=== PATIENT | female | born 1995 | race Caucasian/White ===

== ENCOUNTER 2024-06-18 13:36 | Outpatient (AMB) | payer OTHER, SELFPAY ==
--- NOTE | 2024-06-18 13:38 | MHC.OFFVIS ---
Vital Signs 06/18/24 13:41 Height 5 ft 1 in Weight 256 lb 6.362 oz BMI 48.4 BP 114/72 Blood Pressure Location Lt brachial Position Sitting Pulse 90 Pulse Source Pulse Oximeter Intake Visit Reasons: Obesity Intake Note: Patient present today for Obesity. Coffee Break Attendant Required: No Accompanied by: Self / Same As Patient Allergies No Known Allergies Allergy (Verified 06/18/24 13:43) Medication List - Last Reconciled 06/18/24 by Seth Herring MD sertraline 50 mg PO DAILY sertraline 25 mg PO DAILY HPI Comments Details: This is a 29-year-old female referred to endocrinology for management of obesity. Weight gain started at chronically Recent weight has been gained 50 lb since 08/2023 . Patient has tried diets of protein shake each morning . Had done weight watchers and [employer] . Patient has seen a lobster catcher . Patient has not tried weight loss medications . Was prescribed Wegovy by PCP but not approved There is no history or symptoms of hypothyroidism . . There are no symptoms of Nathan syndrome. Patient is not attempting . There is a family history of obesity and diabetes in grandmother . No sleep apnea sx. Exercises with treadmill and weights [facility] Medical History (Updated 06/18/24 @ 13:48 by Seth Herring MD) Obesity Family History (Updated 06/18/24 @ 13:46 by CHAVEZ Kwan) Mother Atrophic emphysema Father Hypertension Heart disease Asthma Social History Alcohol intake: current Alcohol intake frequency: holidays/special occasions only Patient Tobacco Use Status: Tobacco use Unknown Physical Exam Vital Signs: Last Vital Signs Pulse 90 06/18/24 13:41 BP 114/72 06/18/24 13:41 BMI result Body Mass Index 48.4 Const Other: No cushingoid features. Thyroid gland is normal size weighs by 15 g. There are no thyroid nodules palpated. Assessment & Plan Assessment & Plan (1) Obesity: Code(s): E66.9 - Obesity, unspecified Category: Medical Plan: This 29-year-old white female with a history of morbid obesity. No clear underlying secondary cause. Appears to be clinically and biochemically euthyroid. Plan is to send the patient to lobster catcher. Will discuss use of G LP 1/G IP medication including use of either Zepbound or Wegovy if insurance will allow. After long discussion, we decided to start Zepbound 2.5 mg Qwkly. I went over the side effects of G LP 1 agonist including but not limited to nausea, vomiting and rare risk of pancreatitis Orders: Referrals Nutrition/Dietitian Referral E66.9 - Obesity, unspecified Medications: New tirzepatide (weight loss) (Zepbound) for 4 weeks 2.5 mg (0.5 mL) subcut QWEEK 2 mL 5RF Coding Level of Care Code New Pt Level 4 (23803) Diagnoses Obesity E66.9
[2024-06-18 13:41] VITALS: BP 114/72; PULSE 90; BMI 48.4
== END 2024-06-18 14:31 | disposition home or self-care (01) ==
PROVIDERS: Visit Provider Internal Medicine Endocrinology, Diabetes & Metabolism
DX: E66.9 Obesity, unspecified (principal)
CPT/HCPCS: 99204

== ENCOUNTER → 2024-06-18 13:36 | Outpatient (BNVA) | payer OTHER, SELFPAY | PROVIDERS: Visit Provider Internal Medicine Endocrinology, Diabetes & Metabolism ==

== ENCOUNTER 2024-10-24 15:35 | Outpatient (AMB) | payer OTHER, SELFPAY ==
--- NOTE | 2024-10-24 15:38 | A.OFFVIS_ITS ---
Vital Signs 10/24/24 15:39 Height 5 ft 1 in Weight 248 lb 3.848 oz BMI 46.9 BP 110/70 Blood Pressure Location Lt brachial Position Sitting Pulse 78 Pulse Source Pulse Oximeter Pulse Oximetry (%) 97 Oxygen Delivery Method Room Air Intake Visit Reasons: Obesity Intake Note: Patient present today for Obesity office visit. Hub Inventory Specialist Required: No Accompanied by: Self / Same As Patient Allergies No Known Allergies Allergy (Verified 10/24/24 15:42) Medication List - Last Reconciled 10/24/24 by Seth Herring MD sertraline 50 mg PO DAILY sertraline 25 mg PO DAILY tirzepatide (weight loss) (Zepbound) 2.5 mg (0.5 mL) subcut QWEEK HPI Comments Details: The patient is a 29-year-old female presenting for a follow-up of obesity management. Following a previous trial on semaglutide, which was discontinued due to cost and adverse effects, she initiated Zepound at 2.5 mg. Under this regimen, she reports successful weight reduction and manageable side effects. The patient notes significant lifestyle adjustments, including consistent exercise and dietary monitoring. Her back pain has resolved, and diabetes markers have improved to normal levels. The plan includes monitoring her response to treatment and adjusting the Zepound dose as needed, keeping potential insurance challenges in mind. [facility] Medical History (Updated 06/18/24 @ 13:48 by Seth Herring MD) Obesity Family History Mother Atrophic emphysema Father Hypertension Heart disease Asthma Social History Alcohol intake: current Alcohol intake frequency: holidays/special occasions only Patient Tobacco Use Status: Tobacco use Unknown Review of Systems Const Details: - Gastrointestinal: Reports occasional nausea and vomiting (previously more frequent on semaglutide), occasional acid reflux. Physical Exam Vital Signs: Last Vital Signs Pulse 78 10/24/24 15:39 BP 110/70 10/24/24 15:39 Pulse Ox 97 10/24/24 15:39 Oxygen Delivery Method Room Air 10/24/24 15:39 BMI result Body Mass Index 46.9 Assessment & Plan Assessment & Plan (1) Obesity: Code(s): E66.9 - Obesity, unspecified Category: Medical Plan The patient should continue Zepound 2.5 mg, paired with her current exercise and dietary regimen. A follow-up appointment in six weeks will assess weight loss progress and consider medication dose adjustments, subject to insurance coverage conditions.She will f/u with Carmela Riddle NP in 8 wks . During the visit, we discussed her significant weight loss and overall improvement in managing obesity. Options to adjust her Zepound dose were considered based on her progress and potential insurance issues. I highlighted the importance of her exercise routine and dietary monitoring for sustained weight management and glycemic control. We reviewed her occasional acid reflux, discussing symptomatic treatment options with [id number]-[id number] medications and dietary strategies. The patient is aware of the need for follow-up in six weeks to re-evaluate her weight management plan and any necessary adjustments, emphasizing insurance considerations for ongoing prescriptions. - Continue taking Zepound 2.5 mg as prescribed. Her Zepbound dose will be increased to 5 mg in 2 weeks for maintenance - Maintain calorie counting and regular physical exercise, particularly spin classes. - Monitor weight and glucose levels. - Use rxxw-[id number] antacids as needed for occasional reflux symptoms. - Return for follow-up in six weeks to reassess obesity management plan. - Contact us if experiencing increased or persistent side effects, such as severe nausea or vomiting. - Keep track of any insurance or prescription coverage challenges and report them during the next visit. Medications: New tirzepatide (weight loss) (Zepbound) 5 mg (0.5 mL) subcut QWEEK 2 mL 4RF Discontinued tirzepatide (weight loss) (Zepbound) for 4 weeks Discontinued Reason: Doctor's Order 2.5 mg (0.5 mL) subcut QWEEK 2 mL 5RF Coding Level of Care Code Est Pt Level 3 (57147) Diagnoses Obesity E66.9
[2024-10-24 15:39] VITALS: BP 110/70; PULSE 78; O2SAT 97; BMI 46.9
--- OUTSIDE RECORDS SUMMARY | 2024-10-24 19:09 | XMS_ITS | Clinical Summary ---
Author Organization [facility] Address [address] [place] [address] Phone Care Team Providers Care Special Education Itinerant Teacher Name Role Phone Kathy Rowley CHARLEEN Primary Care Provider [phone] Immunizations Immunization Administration Dates Next Due DTaP 5 07/04/2001, 9,1997, 998,1997 Hep B, ped/adol 02/20/1998,1997,1997 Hib (PRP-T) 07/17/1998, 8,1997, 997 IPV 07/04/2001 MMR 07/04/2001,05/13/1998 Meningococcal Conj (Menactra) MCV4P 07/09/2009 OPV 1997,1997,1997 Tdap 07/09/2009 Varicella 12/19/2007,05/13/1998 Family History Relation Name Status Comments Father Father: Heart d isease Half-Brother Alive Half brother (M ): Alive and well, Alive and well Mother Alive Mother: Alive a nd well Other Family history of Diabetes mellitus Social History Tobacco Use Types Packs/Day Years Used Date Smoking Tobacco: Never Assessed Comments Unknown Sex and Gender Information Value Date Recorded Sex Assigned at Not on file Legal Sex Female 4:33 PM EDT Gender Identity Not on file Sexual Orientation Not on file Last Filed Vital Signs Vital Sign Reading Time Taken Comments Blood Pressure - - Pulse - - Temperature 38.2 ??C (100.7 ??F) 04/07/2010 12:00 AM EDT Respiratory Rate - - Oxygen Saturation - - Inhaled Oxygen Concentration - - Weight 68.3 kg (150 lb 8 oz) 04/07/2010 12:00 AM EDT Height - - Body Mass Index - - Plan of Treatment Health Maintenance Due Date Last Done Comments DTaP,Tdap,and Td Vaccines (7 - Td or Tdap) 07/09/2019 07/09/2009, 07/04/2001, 10/16/1998, Additional history exists Influenza Vaccines (#1) 2024 COVID-19 Vaccine ( season) 2024 Hepatitis B Vaccines Completed 02/20/1998, 1997, 1997 HIB Vaccines Completed 07/17/1998, 10/28, 1997, Additional history exists IPV Vaccines Completed 07/04/2001, 10/28, 1997, Additional history exists MMR Vaccines Completed 07/04/2001, 05/13/1998 Varicella Vaccines Completed 12/19/2007, 05/13/1998 Meningococcal Vaccine Aged Out 07/09/2009 No desirae qiana eligible based on patient's age to complete this topic HPV Vaccines Aged Out No longer eligi ble based on patient's age to complete this topic Hepatitis A Vaccines Aged Out No long er eligible based on patient's age to complete this topic Men B Vaccine Aged Out No longer elig ible based on patient's age to complete this topic Pneumococcal Vaccine Aged Out No long er eligible based on patient's age to complete this topic Care Teams Special Education Itinerant Teacher Relationship Specialty Start Date End Date Kathy Rowley NP PCP - General 04/08/17
== END 2024-10-24 15:59 | disposition home or self-care (01) ==
PROVIDERS: Visit Provider Internal Medicine Endocrinology, Diabetes & Metabolism
DX: E66.9 Obesity, unspecified (principal)
CPT/HCPCS: 99213

== ENCOUNTER → 2024-10-24 15:35 | Outpatient (BNVA) | payer OTHER, SELFPAY | PROVIDERS: Visit Provider Internal Medicine Endocrinology, Diabetes & Metabolism ==

== ENCOUNTER 2024-12-05 15:58 | Outpatient (AMB) | payer OTHER, SELFPAY ==
[2024-12-05 16:05] VITALS: BP 100/60; PULSE 76; O2SAT 98; BMI 45.6
--- NOTE | 2024-12-05 16:05 | A.OFFVIS_ITS ---
Vital Signs 12/05/24 16:05 Height 5 ft 1 in Weight 241 lb 2.971 oz BMI 45.6 BP 100/60 Blood Pressure Location Rt brachial Position Sitting Pulse 76 Pulse Source Pulse Oximeter Pulse Oximetry (%) 98 Oxygen Delivery Method Room Air Intake Visit Reasons: f/u obesity with Carmela Intake Note: Patient presents today to established treatment for Obesity, last seen by Dr Herring: Procurement Representative Required: No Accompanied by: Self / Same As Patient Allergies No Known Allergies Allergy (Verified 12/05/24 16:06) [facility] Medical History Obesity Surgical History (Updated 12/05/24 @ 16:09 by CHAVEZ [place]) No pertinent past surgical history Family History Mother Atrophic emphysema Father Hypertension Heart disease Asthma Social History Alcohol intake: current Alcohol intake frequency: holidays/special occasions only Patient Tobacco Use Status: Tobacco use Unknown Coding
--- NOTE | 2024-12-05 16:05 | A.OFFVIS_ITS ---
Vital Signs 12/05/24 16:05 Height 5 ft 1 in Weight 241 lb 2.971 oz BMI 45.6 BP 100/60 Blood Pressure Location Rt brachial Position Sitting Pulse 76 Pulse Source Pulse Oximeter Pulse Oximetry (%) 98 Oxygen Delivery Method Room Air Intake Visit Reasons: f/u obesity with Carmela Allergies No Known Allergies Allergy (Verified 12/05/24 16:06) HPI Comments Details: The patient is a 29-year-old female presenting for a follow-up of obesity management. She gained 50 lb from August of 2023 to April of 2024. She attributes part of that to going on an SSRI and having some emotional eating. She has been following in our clinic since May 2024. Following a previous trial on semaglutide, which was discontinued due to cost and adverse effects, she initiated Zepound at 2.5 mg. Under this regimen, she reports successful weight reduction and manageable side effects. The patient notes significant lifestyle adjustments, including consistent exercise and dietary monitoring. Her back pain has resolved, and diabetes markers have improved to normal levels. The plan includes monitoring her response to treatment and adjusting the Zepound dose as needed, keeping potential insurance challenges in mind. Current treatment: Zepbound 5.0mg weekly increased from 2.5mg weekly 4 weeks ago She does notice fatigue 2-3 days after taking the Zepbound and would like to continue the current dose. Exercise: Spin cycle class 45 minutes 2-3 days per week followed by 30 minutes of weightlifting/exercise On the other days she walks Meal plan: She is tracking her meals and eating between 0289-3405 calories daily She is getting in about 70 g of protein daily She is sexually active is not currently not using control other than the pullout method. Weight trendin05/2024 256 09/2024 248 11/2024 241 [facility] Medical History Obesity Surgical History (Updated 12/05/24 @ 16:09 by CHAVEZ [place]) No pertinent past surgical history Family History Mother Atrophic emphysema Father Hypertension Heart disease Asthma Social History Alcohol intake: current Alcohol intake frequency: holidays/special occasions only Patient Tobacco Use Status: Tobacco use Unknown Physical Exam Vital Signs: Last Vital Signs Pulse 76 12/05/24 16:05 BP 100/60 12/05/24 16:05 Pulse Ox 98 12/05/24 16:05 Oxygen Delivery Method Room Air 12/05/24 16:05 BMI result Body Mass Index 45.6 Const Other: Absence of Cushingoid features. Absence of acromegalic features. Neck exam reveals nl size thyroid about 15 gms. No thyroid nodules palpable. Heart S1 S2, Reg R/R. No M/R G. Skin exam reveals absence of vitiligo or acanthosis nigricans. Assessment & Plan Assessment & Plan (1) Obesity: Code(s): E66.9 - Obesity, unspecified Category: Medical Plan: 29-year-old with a previous pre diabetes and obesity doing well on Zepbound. She is losing about a lb per week and we will continue the current dose. Can consider increasing in the future. She will continue all of her lifestyle measures, tracking food intake, exercise and is planning on purchasing the book of the learn method for weight control which has a behavioral modification work book. She was advised that there have been some studies on the safety of zepbouond in . She does not wish to become in his currently using the pullout method. She will plan to schedule an appointment with her electronic field service engineer and was advised that is Zepbound can lower the effectiveness of control and she may want to consider other measures such as cervical cap or IUD. She will continue to follow with us on an ongoing basis. Her prior authorization for Zepbound does in January and we will need to initiate a new 1 at that time. Coding Level of Care Code Est Pt Level 4 (59718) Complex EM visit Add On G2211 Diagnoses Obesity E66.9 Time Spent (min) 30 Comment Time spent reviewing labs/provider notes, face to face, chart doc
--- OUTSIDE RECORDS SUMMARY | 2024-12-05 17:41 | XMS_ITS | Clinical Summary ---
Author Organization [facility] Address [address] [place] [address] Phone Care Team Providers Care Burr Machine Operator Name Role Phone Kathy Rowley CHARLEEN Primary Care Provider [phone] Immunizations Immunization Administration Dates Next Due DTaP [...] age to complete this topic Care Teams Burr Machine Operator Relationship Specialty Start Date End Date Kathy Rowley NP PCP - General 04/08/17
== END 2024-12-05 16:37 | disposition home or self-care (01) ==
LOC: HO.ENCR 15:58
PROVIDERS: Visit Provider Nurse Practitioner Adult Health
DX: E66.9 Obesity, unspecified (principal)
CPT/HCPCS: 99214

== ENCOUNTER → 2024-12-05 15:58 | Outpatient (BNVA) | payer OTHER, SELFPAY | PROVIDERS: Visit Provider Nurse Practitioner Adult Health ==

== ENCOUNTER 2025-02-21 07:05 | Outpatient (AMB) | payer OTHER, SELFPAY ==
--- NOTE | 2025-02-20 15:58 | A.OFFVIS_ITS ---
Vital Signs 02/21/25 07:29 Height 5 ft 1 in Weight 232 lb 0.54 oz BMI 43.8 BP 112/62 Intake Visit Reasons: f/u obesity with Carmela Allergies No Known Allergies Allergy (Verified 12/05/24 16:06) HPI Comments Details: The patient is a 29-year-old female presenting for a follow-up of obesity management. She gained 50 lb from August of 2023 to April of 2024. She attributes part of that to going on an SSRI and having some emotional eating. She has been following in our clinic since May 2024. Following a previous trial on semaglutide, which was discontinued due to cost and adverse effects,she is at 5mg and is ready to titrate to the 7.5mg this month, followed by an increase to 10mg. Under this regimen, she reports successful weight reduction and manageable side effects. The patient notes significant lifestyle adjustments, including consistent exercise and dietary monitoring. Her back pain has resolved, and diabetes markers have improved to normal levels. The plan includes monitoring her response to treatment and adjusting the Zepound dose as needed, keeping potential insurance challenges in mind. No side effects to Zepbound with the exception of mild irritation at the site. She did have 1 episode that might have involved hypoglycemia where she became sweaty and slightly weak. This was also out in the hot weather. Exercise: She is walking and swimming for exercise Spin cycle class 45 minutes 2-3 days per week followed by 30 minutes of weightlifting/exercise: does this in the colder weather Meal plan: She is tracking her meals and eating between 3461-5115 calories daily She is getting in about 70 g of protein daily She is sexually active is not currently not using control other than the pullout method. Weight trendin05/2024 256 09/2024 248 11/2024 241 02/20/25 232.2 [facility] Medical History Obesity Surgical History (Updated 12/05/24 @ 16:09 by CHAVEZ [place]) No pertinent past surgical history Family History Mother Atrophic emphysema Father Hypertension Heart disease Asthma Social History Alcohol intake: current Alcohol intake frequency: holidays/special occasions only Patient Tobacco Use Status: Tobacco use Unknown Physical Exam Vital Signs: Last Vital Signs BP 112/62 02/21/25 07:29 BMI result Body Mass Index 43.8 Const Other: Absence of Cushingoid features. Absence of acromegalic features. Neck exam reveals nl size thyroid about 15 gms. No thyroid nodules palpable. Heart S1 S2, Reg R/R. No M/R G. Skin exam reveals absence of vitiligo or acanthosis nigricans. Assessment & Plan Assessment & Plan (1) Obesity: Code(s): E66.9 - Obesity, unspecified Category: Medical Plan: See below Plan This is a 29-year-old female with obesity who was doing well on a Zepbound. She has lost 10% of her body weight. Her current BMI is 43.8 and she would benefit from additional weight loss. Increase aerobic exercise including water aerobics Purchased the behavioral modification self directed work book The LEARN Method for Weight Control which is a 12 chapter guide for weight loss using the methods of lifestyle, exercise, attitudes, relationships and nutrition. Zepbound 7.5 mg this month. She will call our office to let us know if she is tolerating this and her dosing can be increased By telephone contact. Medications: New Zepbound (tirzepatide (weight loss)) 7.5 mg (0.5 mL) subcut QWEEK 2 mL 4RF 28 days NS Discontinued tirzepatide (weight loss) (Zepbound) Discontinued Reason: Doctor's Order 5 mg (0.5 mL) subcut QWEEK 2 mL 4RF Coding Level of Care Code Est Pt Level 3 (41409) Complex EM visit Add On G2211 Diagnoses Obesity E66.9 Time Spent (min) 30 Comment Time spent reviewing labs/provider notes, face to face, chart doc
[2025-02-21 07:29] VITALS: BP 112/62; BMI 43.8
== END 2025-02-21 07:27 | disposition home or self-care (01) ==
LOC: HO.ENCR 07:06
PROVIDERS: Visit Provider Nurse Practitioner Adult Health
DX: E66.9 Obesity, unspecified (principal)
CPT/HCPCS: 99213; G2211